=== PATIENT | male | born 1955 | race Caucasian/White ===

== ENCOUNTER 2021-09-28 10:24 | Emergency (ER) | payer MEDICARE, OTHER ==
[2021-09-28 11:16] LABS: TROPONIN I HIGH SENSITIVITY 4.3 pg/mL (<=60.3)
== END 2021-09-28 11:36 | disposition home or self-care (01) ==
LOC: JP.ED 10:24
DX: R07.89 Other chest pain (principal); Z91.041 Radiographic dye allergy status; Z79.82 Long term (current) use of aspirin; Z79.899 Other long term (current) drug therapy
CPT/HCPCS: 36415; 71045; 71045-26; 80048; 84484; 85025; 93005; 99285